=== PATIENT | male | born 1970 | race American Indian/Alaskan Native ===

== ENCOUNTER 2020-02-15 09:12 | Emergency (ER) | payer SELFPAY ==
[2020-02-15 10:56] VITALS: BP 145/101
--- NOTE | 2020-02-15 13:53 | Emergency Department Report ---
Chief Complaint: Abdominal Pain Stated Complaint: STOMACH PAIN Time Seen by Provider: 02/15/20 13:11 - HPI History of Present Illness: Patient is a 49-year-old male who presents emergency room with complaints of a "lump at his bellybutton" that began a couple of months ago. He has not seen anyone for this. He denies any nausea, vomiting, diarrhea, fever, issues with urination. He states he had a normal bowel movement yesterday. He states he has been tolerating p.o. intake without any difficulty. He denies any past medical history allergies medications. Vitals are stable On exam: There is a small umbilical hernia present to the left side of the umbilicus, easily reducible, normal bowel sounds Examination consistent with umbilical hernia It is easily reducible, no signs of incarceration Patient does not have any obstructive symptoms, he is tolerating p.o. intake without difficulty, no nausea vomiting, having normal bowel movements advised pt Please follow-up with a general surgeon. Please follow-up with your primary care doctor. Return to emergency room immediately for any new or worsening symptoms including but not limited to worsening pain, unable to have a bowel movement or pass gas, unable to tolerate by mouth intake, constant vomiting, fever, etc. Discussed strict return precautions Patient referred to the appropriate resources Medical screening examination performed and there is no threat to life or limb at this time - Exam Vital Signs: Vital Signs 02/15/20 09:20 Temperature 98.1 F Pulse Rate 90 Respiratory 16 Rate Blood Pressure 145/101 O2 Sat by Pulse 94 Oximetry MSE screening note: Focused history and physical exam performed. ED Disposition for MSE Clinical Impression: Umbilical hernia Qualifiers: Obstruction and gangrene presence: without obstruction or gangrene Qualified Code(s): K42.9 - Umbilical hernia without obstruction or gangrene Disposition: Z-07 MED SCREENING EXAM-LEFT Is pt being admited?: No Does the pt Need Aspirin: No Condition: Stable Instructions: Umbilical Hernia (ED) Additional Instructions: Please follow-up with a general surgeon. Please follow-up with your primary care doctor. Return to emergency room immediately for any new or worsening symptoms including but not limited to worsening pain, unable to have a bowel movement or pass gas, unable to tolerate by mouth intake, constant vomiting, fever, etc. Referrals: PEG RAMEY DO [Staff Physician] - 2-3 Days RAHEEM SYLVESTER MD [Staff Physician] - 2-3 Days EPIFANIO LAM MD [Staff Physician] - 2-3 Days [facility] [Provider Group] - 2-3 Days [facility] [Outside] - 2-3 Days Time of Disposition: 13:52 Print Language: KHMER
== END 2020-02-15 14:04 | disposition left against medical advice (07) ==
LOC: ED 09:12
DX: K42.9 Umbilical hernia without obstruction or gangrene (principal); Z53.21 Procedure and treatment not carried out due to patient leaving prior to being seen by health care provider

== ENCOUNTER 2022-02-20 19:48 | Emergency (ER) | payer SELFPAY ==
[2022-02-20 21:29] VITALS: BP 146/101
[2022-02-20] MEDS ORDERED: AMOXICILLIN/K CLAV 875/125MG TAB PO ONE (23:59)
[2022-02-20] MEDS ORDERED: IBUPROFEN 600 MG TAB PO ONE (23:59)
[2022-02-20] MEDS ORDERED: METOCLOPRAMIDE 10 MG TAB PO ONE (23:59)
[2022-02-20] MEDS ORDERED: HYDROcodone/ACETAMINOPHEN 5-325 MG TAB PO ONE (23:59)
--- NOTE | 2022-02-21 00:06 | Emergency Department Report ---
ED General Adult HPI - General Chief complaint: Dental/Oral Stated complaint: TOOTHACHE Source: patient Mode of arrival: Ambulatory Limitations: No Limitations - History of Present Illness Initial comments: Patient is a 51-year-old male with no past medical history presents to the ED with complaint of acute onset persistent left mandibular and maxillary premolar and molar tooth aches with swollen gums for the last 2 weeks, worse in the last 3 days. Patient states that he has not been able to sleep because of worsening pain. Patient states that he has been taking [id number] medications with no relief. Patient denies dizziness, syncope, sore throat, nausea and vomiting, chest pain or shortness of breath, headache, dysphagia, dysphonia, traumatic injury, change in vision, abdominal pain or fever and chills. MD Complaint: Left mandibular premolar molar tooth ache; swollen gums -: Gradual, week(s) (2) Location: mouth Radiation: non-radiation Severity scale (0 -10): 8 Quality: aching, sharp Consistency: constant Improves with: none Worsens with: eating Associated Symptoms: denies other symptoms. denies: confusion, chest pain, cough, diaphoresis, fever/chills, headaches, loss of appetite, malaise, nausea/vomiting, rash, seizure, shortness of breath, syncope, weakness Treatments Prior to Arrival: NSAID - Related Data Previous Rx's Medication Instructions Recorded Last Taken Type Ibuprofen [Ibuprofen 800] 800 mg PO TID PRN #30 tablet 05/25/18 Unknown Rx Ketotifen Fumarate [Zaditor] 1 drop OU BID #5 ml 05/25/18 Unknown Rx Polymyxin B Sulf/Trimethoprim 2 drop OU 2XW 10 Days #10 ml 05/25/18 Unknown Rx [Polytrim Eye Drops] Clindamycin [Clindamycin CAP] 300 mg PO Q8H #30 cap 02/21/22 Unknown Rx Ketorolac [Toradol] 10 mg PO Q8H PRN #20 tab 02/21/22 Unknown Rx traMADoL [Ultram] 50 mg PO Q6HR PRN #10 tablet 02/21/22 Unknown Rx Allergies Allergy/AdvReac Type Severity Reaction Status Date / Time No Known Allergies Allergy Unverified 05/24/18 23:23 ED Review of Systems ROS: Stated complaint: TOOTHACHE Other details as noted in HPI Constitutional: denies: chills, fever Eyes: denies: eye pain, eye discharge, vision change ENT: dental pain (Left mandibular and maxillary premolar and molar tooth ache with swollen gums), other. denies: ear pain, throat pain Respiratory: denies: cough, shortness of breath, wheezing Cardiovascular: denies: chest pain, palpitations Endocrine: no symptoms reported Gastrointestinal: denies: abdominal pain, nausea, vomiting, diarrhea, constipation, hematemesis, melena Genitourinary: denies: urgency, dysuria Musculoskeletal: denies: back pain, joint swelling, arthralgia Skin: denies: rash, lesions Neurological: denies: headache, weakness, paresthesias Psychiatric: denies: anxiety, depression Hematological/Lymphatic: denies: easy bleeding, easy bruising ED Past Medical Hx - Past Medical History Previous Medical History?: No - Surgical History Past Surgical History?: No - Social History Smoking Status: Current Every Day Smoker Substance Use Type: Alcohol - Medications Home Medications: Home Medications Medication Instructions Recorded Confirmed Last Taken Type Ibuprofen [Ibuprofen 800] 800 mg PO TID PRN #30 tablet 05/25/18 Unknown Rx Ketotifen Fumarate [Zaditor] 1 drop OU BID #5 ml 05/25/18 Unknown Rx Polymyxin B Sulf/Trimethoprim 2 drop OU 2XW 10 Days #10 ml 05/25/18 Unknown Rx [Polytrim Eye Drops] Clindamycin [Clindamycin CAP] 300 mg PO Q8H #30 cap 02/21/22 Unknown Rx Ketorolac [Toradol] 10 mg PO Q8H PRN #20 tab 02/21/22 Unknown Rx traMADoL [Ultram] 50 mg PO Q6HR PRN #10 tablet 02/21/22 Unknown Rx ED Physical Exam - General Limitations: No Limitations General appearance: alert, in no apparent distress - Head Head exam: Present: atraumatic, normocephalic, normal inspection - Eye Eye exam: Present: normal appearance, PERRL, EOMI Pupils: Present: normal accommodation - ENT ENT exam: Present: mucous membranes moist, TM's normal bilaterally, normal external ear exam, other (Mildly swollen left maxillary and mandibular gingiva with premolar and molar teeth tenderness) - Neck Neck exam: Present: normal inspection, full ROM. Absent: tenderness, lymphadenopathy - Respiratory Respiratory exam: Present: normal lung sounds bilaterally. Absent: respiratory distress, wheezes, rales, rhonchi, stridor, chest wall tenderness, accessory muscle use, decreased breath sounds, prolonged expiratory - Cardiovascular Cardiovascular Exam: Present: regular rate, normal rhythm, normal heart sounds. Absent: systolic murmur, diastolic murmur, rubs, gallop - GI/Abdominal GI/Abdominal exam: Present: soft, normal bowel sounds. Absent: tenderness, guarding, rebound, hyperactive bowel sounds, hypoactive bowel sounds, organomegaly, bruit - Extremities Exam Extremities exam: Present: normal inspection, full ROM, normal capillary refill. Absent: tenderness - Back Exam Back exam: Present: normal inspection, full ROM. Absent: tenderness, CVA tenderness (R), CVA tenderness (L), muscle spasm, paraspinal tenderness, vertebral tenderness - Neurological Exam Neurological exam: Present: alert, oriented X3, CN II-XII intact, normal gait, reflexes normal - Psychiatric Psychiatric exam: Present: normal affect, normal mood - Skin Skin exam: Present: warm, dry, intact, normal color. Absent: rash ED Course Vital Signs 02/20/22 21:26 Temperature 98.6 F Pulse Rate 80 Respiratory 16 Rate Blood Pressure 146/101 [Right] O2 Sat by Pulse 94 Oximetry ED Medical Decision Making - Medical Decision Making This is a 51-year-old male with no past medical history presents to the ED with complaint of acute onset persistent left mandibular and maxillary premolar and molar tooth aches with swollen gums for the last 2 weeks, worse in the last 3 days. Patient states that he has not been able to sleep because of worsening pain. Patient states that he has been taking [id number] medications with no relief. In the ED, patient is alert and oriented x3 and is not in any distress. Patient was treated for pain in the ED and also received initial oral antibiotics in the ED. Patient was discharged home on antibiotics and pain medications and advised to follow-up with his primary care physician or dentist in 7 to 10 days for reevaluation. Patient was advised to return to the ED immediately if symptoms get worse. - Differential Diagnosis Dental abscess; gingivitis; dental caries; Critical care attestation.: If time is entered above; I have spent that time in minutes in the direct care of this critically ill patient, excluding procedure time. ED Disposition Clinical Impression: Dental abscess, Acute gingivitis, Dental caries Disposition: HOME / SELF CARE / HOMELESS Is pt being admited?: No Does the pt Need Aspirin: No Condition: Stable Instructions: Dental Abscess, [id number], Dental Extraction, Care After, [id number], Trench Mouth Additional Instructions: Take medication with food, drink plenty of fluids, follow-up with your primary care physician or dentist in 7 to 10 days for reevaluation. Return to the ED immediately if symptoms get worse. Prescriptions: Clindamycin [Clindamycin CAP] 300 mg PO Q8H #30 cap Ketorolac [Toradol] 10 mg PO Q8H PRN #20 tab PRN Reason: Pain , Severe (7-10) traMADoL [Ultram] 50 mg PO Q6HR PRN #10 tablet PRN Reason: Pain Referrals: [facility] [Outside] - 7-10 days Time of Disposition: 00:11 Print Language: PASHTO
== END 2022-02-21 01:35 | disposition home or self-care (01) ==
LOC: ED 19:48
DX: K04.7 Periapical abscess without sinus (principal); K05.00 Acute gingivitis, plaque induced; K02.9 Dental caries, unspecified; F17.200 Nicotine dependence, unspecified, uncomplicated; Z79.899 Other long term (current) drug therapy
CPT/HCPCS: 99282